=== PATIENT | female | born 1990 | race Caucasian/White ===

== ENCOUNTER 2017-09-13 06:20 | Day surgery (SDC) | payer MEDICAID ==
[~2017-09-13 06:20] MED LIST: CEFAZOLIN 2 GM/50 ML (PMX) 50 ML IVPB; SOD CHLORIDE 0.9% 1,000 ML IV
[2017-09-13] MEDS ORDERED: DIPHENHYDRAMINE 50 MG INJ IV (08:30)
[2017-09-13] MEDS ORDERED: HYDROmorphONE (0.2 MG/ML) 10ML SYG IV ×2 (08:30)
[2017-09-13] MEDS ORDERED: FENTAnyl 50 MCG/ML VIAL IV (08:30)
[2017-09-13] MEDS ORDERED: MEPERIDINE 25 MG INJ IV (08:30)
[2017-09-13] MEDS ORDERED: METOCLOPRAMIDE 10 MG INJ IV (08:30)
[2017-09-13] MEDS ORDERED: ROPIVACAINE 0.5 % 30 ML VIAL (08:49)
[2017-09-13] MEDS ORDERED: FENTAnyl 50 MCG/ML VIAL ×2 (08:49→09:46)
[2017-09-13] MEDS ORDERED: BUPIVACAINE 0.25% (MPF) 30 ML INJ (08:52)
[2017-09-13] MEDS: POLYMYXIN/BACITRACIN 1L IRRIG IRR (09:17)
[2017-09-13] MEDS ORDERED: CEFAZOLIN 1 GM INJ (09:30)
[2017-09-13] MEDS ORDERED: SUCCINYLCHOLINE CHLORIDE 100 MG/5 ML SYG IV (09:30)
[2017-09-13] MEDS ORDERED: PROPOFOL 20 ML (09:30)
[2017-09-13] MEDS ORDERED: SUGAMMADEX SODIUM 200 MG/2 ML VIAL IV (09:30)
[2017-09-13] MEDS ORDERED: LIDOCAINE 100 MG SYRINGE (09:30)
[2017-09-13] MEDS ORDERED: ROCURONIUM 50 MG INJ (09:30)
[2017-09-13] MEDS ORDERED: POLYMYXIN/BACITRACIN 1L IRRIG (09:58)
[2017-09-13] MEDS ORDERED: HYDROCODONE/APAP (5/325) TAB PO (10:00)
[2017-09-13] MEDS: FENTAnyl 50 MCG/ML VIAL IV (10:08)
[2017-09-13] MEDS: HYDROmorphONE (0.2 MG/ML) 10ML SYG IV (10:09)
[2017-09-13] MEDS: ONDANSETRON 4 MG INJ IV (10:38)
== END 2017-09-13 11:43 | disposition home or self-care (01) ==
LOC: SDS 06:20
DX: K43.6 Other and unspecified ventral hernia with obstruction, without gangrene (principal); E66.9 Obesity, unspecified; Z68.31 Body mass index [BMI] 31.0-31.9, adult
CPT/HCPCS: 49653; 84703